=== PATIENT | male | born 1935 | race Caucasian/White ===

== ENCOUNTER 2017-04-11 09:57 | Outpatient (CLI) | payer MEDICARE, BC ==
[~2017-04-11 09:57] MED LIST: AMOXICILLIN500 MG ORAL; ASCORBIC ACID500 MG GT; ASPIR 8181 MG ORAL; AZILECT1 MG PO; CARBIDOPA-LEVO1 EAC1 PO; CARBIDOPA-LEVO1 EAC5 PO; CEPHALEXIN500 M1 ORAL; CLONIDINE0.1 MG PO; CULTURELLE1 EAC1 GT; DILANTIN100 MG ORAL; DUONEB 0.5-3(2.53 ML HHN; ECOTRIN81 MG PO; EXELON1 EACH TD; EXELON1.5 MG ORAL; EXELON4.6 MG TD; EXELON9.5 MG TD; FLAGYL250 MG GT; FLOMAX0.4 MG ORAL; HEPARIN SO5000 UNIT2; HEPARIN SO5000 UNIT2 SUBQ; KEPPRA500 M4 ORAL; KEPPRA750 MG IV; KLONOPIN0.5 MG ORAL; LEVETIRACE100 MG/1 M PO; MULTI VITAMIN1 EACH ORAL; NORVASC10 MG ORAL; NYSTATIN CREAM15 GM TOPIC; POTASSIUM CHLO20 ME1 GT; QUETIAPINE FUM100 MG ORAL; QUETIAPINE FUMA50 MG ORAL; SEROQUEL100 MG ORAL; SINEMET 25-1001 EAC1 ORAL; SINEMET 25/1001 EA GT; SINEMET CR 50/201 EA ORAL; TAMSULOSIN HCL0.4 MG ORAL; TOBRAMYCIN5 ML OPHTHALM; TYLENOL325 MG ORAL; TYLENOL650 MG/20. ORAL; UNOBMED; VALPROATE500 MG/5 M IV; VANCOMYCIN1 GM GT; VITAMIN B-125000 MC1 PO; VITAMIN C250 MG ORAL; VITAMIN C500 M3 ORAL; ZINC SULFATE GT; ZINC SULFATE220 M1 ORAL; [UNRECOGNIZED DRUG - OTHER]
--- NOTE | 2017-04-18 16:43 | Diagnostic Imaging Report ---
Indications: Dysphagia Technique: Patient ingested multiple substances under the supervision of speech pathology. Video fluoroscopic recording performed. Total fluoroscopy time 308 seconds. Total dose area product 0.63752 mGycm2 Comparison: 11/13/2015 Findings: Early pooling in the vallecula and piriform sinuses. Delay in initiation of deglutition. Single episode of trace laryngeal penetration with thin liquid barium. No tim aspiration. No aspiration or penetration of nectar thick liquid barium Impression: Positive for penetration of thin liquids. Please refer to speech pathology report for more detailed analysis
== END 2017-04-11 11:57 | disposition home or self-care (01) ==
LOC: RAD 09:57
DX: R13.10 Dysphagia, unspecified (principal)
CPT/HCPCS: 74230; 92611; G8996; G8997